=== PATIENT | male | born 1980 | race American Indian/Alaskan Native ===

== ENCOUNTER 2017-12-11 05:43 | Emergency (ER) | payer BC ==
[2017-12-11 05:51] VITALS: BP 147/71
[2017-12-11] MEDS ORDERED: MOTRIN PO ONE (09:14)
[2017-12-11] MEDS ORDERED: NORCO 5/325 PO ONE (09:14)
--- NOTE | 2017-12-11 09:16 | Emergency Department Report ---
Upper Extremity - HPI Chief Complaint: Extremity Injury, Upper Stated Complaint: RIGHT SHOULDER PAIN Time Seen by Provider: 12/11/17 09:07 Upper Extremity: Right Shoulder (right shoulder pain) Severity: moderate Symptoms: Yes Pain with Movement, Yes Limited Range of Movement, No Deformity, No Numbness, No Weakness, No Swelling, No Bruising/Ecchymosis, No Laceration or Abrasion Other History: 37-year-old male past medical history none presents with complaint of 2 weeks of persistent right shoulder pain. Patient denies any direct trauma fever or chills ED Review of Systems ROS: Stated complaint: RIGHT SHOULDER PAIN Other details as noted in HPI Constitutional: denies: chills, fever Eyes: denies: eye pain, eye discharge, vision change ENT: denies: ear pain, throat pain Respiratory: denies: cough, shortness of breath, wheezing Cardiovascular: denies: chest pain, palpitations Endocrine: no symptoms reported Gastrointestinal: denies: abdominal pain, nausea, diarrhea Genitourinary: denies: urgency, dysuria Musculoskeletal: as per HPI (patient states he has had intermittent right shoulder pain for 1-2 years), arthralgia. denies: back pain, joint swelling Skin: denies: rash, lesions Neurological: denies: headache, weakness, paresthesias Psychiatric: denies: anxiety, depression Hematological/Lymphatic: denies: easy bleeding, easy bruising ED Past Medical Hx - Past Medical History Previous Medical History?: No - Surgical History Past Surgical History?: No - Social History Smoking Status: Current Every Day Smoker Substance Use Type: None - Medications Home Medications: Home Medications Medication Instructions Recorded Confirmed Last Taken Type Cyclobenzaprine [Flexeril] 10 mg PO TID PRN #12 tablet 12/11/17 Unknown Rx Naproxen [Naprosyn TAB] 375 mg PO BID PRN #20 tablet 12/11/17 Unknown Rx Upper Extremity Exam - Exam General: Vital signs noted. No distress. Alert and acting appropriately. Head and Torso: No HEENT Abnormality, No Neck Tenderness, No Chest/Lungs Abnormality, No Abdominal Tenderness, No Back Tenderness Shoulder Exam: Yes Shoulder Tenderness (right shoulder abduction somewhat painful to patient. Internal and external rotation intact), Yes Normal Range of Motion in Shoulder, No Clavicle Tenderness, No Shoulder Deformity, No AC Joint Tenderness Arm Exam: No Arm/Humerus Tenderness, No Arm Deformity Elbow: No Elbow Tenderness, No Normal Range of Motion in Elbow, No Elbow Deformity Forearm: No Forearm Tenderness, No Forearm Deformity, No Pain with Pronation, No Pain with Supination Wrist: Yes Normal ROM in Wrist, No Wrist Tenderness, No Wrist Deformity, No Snuffbox Tenderness, No Pain with Axial Thumb Compression Hand: Yes Normal ROM in Digit(s), No Hand Tenderness, No Hand Deformity, No Digit Tenderness, No Digit(s) Deformity, No Tendon Dysfunction CMS Exam: Yes Normal Distal Pulses (distal radial brachial and ulnar pulses strong to palpation), Yes Normal Capillary Refill, Yes Normal Distal Sensation, No Broken Skin ED Course Vital Signs 12/11/17 05:42 Temperature 98.4 F Pulse Rate 79 Respiratory 18 Rate Blood Pressure 147/71 O2 Sat by Pulse 99 Oximetry ED Medical Decision Making - Medical Decision Making A/P: Right shoulder pain, possible rotator cuff injury 1-range of motion right shoulder preserved on exam active and passive range of motion clinically intact 2-no clinical signs of cellulitis or septic joint on exam 3-x-rays unremarkable 4-naproxen and Flexeril when necessary. Advised patient to follow up with orthopedics and provided him with multiple referrals Critical care attestation.: If time is entered above; I have spent that time in minutes in the direct care of this critically ill patient, excluding procedure time. ED Disposition Clinical Impression: Right shoulder pain Qualifiers: Chronicity: acute Qualified Code(s): M25.511 - Pain in right shoulder Disposition: DC- TO HOME OR SELFCARE Is pt being admited?: No Does the pt Need Aspirin: No Condition: Stable Instructions: Rotator Cuff Injury (ED), Rotator Cuff Tendinitis (ED) Additional Instructions: [email or web address] Prescriptions: Cyclobenzaprine [Flexeril] 10 mg PO TID PRN #12 tablet PRN Reason: Muscle Spasm Naproxen [Naprosyn TAB] 375 mg PO BID PRN #20 tablet PRN Reason: Pain , Severe (7-10) Referrals: KARL LOCK MD [Staff Physician] - 3-5 Days Forms: Work/School Release Form(ED) Time of Disposition: 09:46
--- NOTE | 2017-12-11 09:44 | XRay Report ---
RIGHT SHOULDER: Pain. Routine views demonstrate normal bony and soft tissue structures with normal joint alignment of the shoulder. IMPRESSION: Normal study.
== END 2017-12-11 10:14 | disposition home or self-care (01) ==
LOC: ED 05:43
DX: M25.511 Pain in right shoulder (principal); F17.200 Nicotine dependence, unspecified, uncomplicated